=== PATIENT | female | born 2000 | race Caucasian/White ===

== ENCOUNTER 2022-05-18 19:33 | Emergency (ER) | payer MEDICAID, SELFPAY ==
--- NOTE | ~2022-05-18 | XR_ITS ---
EXAMINATION: XR chest 1V portable DATE: 05/19/2022 01:11 INDICATION: Chest pain. TECHNIQUE: A single frontal view of the chest was obtained. COMPARISON: None. FINDINGS: The chest demonstrates clear lungs without pneumonia, pleural effusion, or pneumothorax. Th e heart size is normal. IMPRESSION: 1. No acute cardiopulmonary disease. Reviewed, dictated and finalized at location A. ING ROOM MAINTENANCE MECHANIC
--- NOTE | ~2022-05-18 | US_ITS ---
EXAMINATION: US OB <=14 wk fetus w TV DATE: 05/19/2022 00:44 INDICATION: Vaginal bleeding. Tachycardia. . TECHNIQUE: Real-time transabdominal and transvaginal pelvic ultrasound was performed. COMPARISON: None. FINDINGS: TRANSABDOMINAL ULTRASOUND: The uterus measures 8.6 x 5.2 x 4.4 cm. TRANSVAGINAL ULTRASOUND: There is an intrauterine gestational sac with mean diameter of 8 mm, which c orrelates with an estimated gestational age of 5 weeks and 4 days +/- 4 days. A yolk sac is identifie d. There is no visible pole. The right ovary measures 2.5 x 2.0 x 2.5 cm. The left ovary measur es 2.8 x 4.1 x 2.8 cm. There is trace free fluid in the pelvis. IMPRESSION: 1. Single intrauterine gestation with estimated date of delivery of 01/15/2023. Reviewed, dictated and finalized at location A. BAG BUILDER
[2022-05-18 19:37] VITALS: BP 130/79; PULSE 136; RESP 18; TEMP 36.2; O2SAT 100
--- NOTE | 2022-05-18 21:10 | ECG_ITS ---
Measurements Intervals [place] Rate: 127 P: 69 [place]: 111 QRS: 75 QRSD: 89 T: 34 QT: 284 QTc: 413 Interpretive Statements SINUS TACHYCARDIA WITH SHORT [place] INTERVAL INCOMPLETE RIGHT BUNDLE BRANCH BLOCK BORDERLINE ST-T WAVE ABNORMALITY- ANT/INF LEADS BASELINE ARTIFACT- I, II, AVR, AVL ABNORMAL ECG NO PREVIOUS ECG AVAILABLE FOR COMPARISON Electronically Signed On 05-18-2022 22:59:24 DIRECTOR CLINICAL DATA by Terrell Mathew D.O.
[2022-05-18 21:38] LABS: Appearance Urine Clear (Clear); Basophils Percent Auto 0.3 % (0.2-1.2); Bilirubin Urine Negative (Negative); Blood Urine Trace-intact (Negative); Color Urine Yellow (Yellow); Eosinophils Percent Auto 0.6 % (0-4.4); Glucose Urine UA Trace mg/dL (Negative); Hematocrit 36.8 % (37.0-47.0); Hemoglobin 11.9 g/dL (12.0-15.0); Immature Granulocyte Absolute 0.02 K/mm3 (0.00-0.031); Immature Granulocyte Percent A 0.3 % (0-0.5); Ketones Urine Negative (Negative); Leukocyte Esterase Ur Negative LEU/UL (Negative); Lymphocytes Absolute Auto 1.66 K/mm3 (0.9-3.2); Mean Corpuscular HGB Conc 32.3 g/dl (32-36); Mean Corpuscular Hemoglobin 26.6 pg (26-34); Mean Corpuscular Volume 82.1 fl (80-100); Mean Platelet Volume 10.1 fl (7.4-10.4); Monocytes Absolute Auto 0.5 K/mm3 (0.1-0.6); Monocytes Percent Auto 6.8 % (2.6-8.5); Neutrophils Absolute Auto 4.7 K/mm3 (1.3-6.7); Nitrate Urine Negative (Negative); Platelet Count Result 317 k/mm3 (150-375); Protein Urine Negative (Negative); Red Blood Count 4.48 M/mm3 (4.2-5.4); Red Cell Distribution Width 14.1 % (11.5-14.5); Urobilinogen Urine 0.2 mg/dL (<2.0); White Blood Count 6.9 K/mm3 (4.5-10.0)
[2022-05-18 21:47] LABS: RBC Urine 0-2 /hpf (0-2); Squamous Epithelial Cell Urine Rare /hpf (Few); WBC Urine 0-3 /hpf
[2022-05-18 21:48] LABS: Alanine Aminotransferase 16 U/L (6-35); Albumin Level 4.7 g/dL (3.5-5.1); Alkaline Phosphatase 55 U/L (38-126); Anion Gap 11 mmol/L (8-16); Aspartate Amino Transferase 22 U/L (14-36); Bilirubin,Total 0.2 mg/dL (0.2-1.3); Blood Urea Nitrogen 9 mg/dL (7-17); Calcium 8.9 mg/dL (8.4-10.2); Carbon Dioxide 21 mmol/L (22-30); Chloride 106 mmol/L (98-107); Estimated CRCL calculation 98 ml/min; Estimated Glomerular Filt Rate > 60; Glucose 115 mg/dL (65-110); Lipase 81 U/L (23-300); Potassium 3.8 mmol/L (3.4-5.0); Sodium 138 mmol/L (137-145)
[2022-05-18 21:49] LABS: Add Urine Microscopic? YES
[2022-05-18 21:59] LABS: Troponin I < 0.012 ng/mL (0.000-0.034)
--- NOTE | 2022-05-18 23:01 | ED.BACK ---
HPI - Back Pain/Injury General Chief Complaint: Back Pain/Injury Stated Complaint: left upper back pain with SOB Time Seen by Provider: 05/18/22 23:01 Source: patient Mode of arrival: ambulatory Limitations: no limitations History of Present Illness HPI Narrative: Patient is a 22-year-old female currently 6 weeks dated by last menstrual period, presenting to the emergency department for evaluation of left upper chest and back pain as well as shortness of breath. Patient reports pain began suddenly this evening approximately 5 hours ago while she was sitting. Patient denies any significant exertional activity, fall, trauma. Patient reports shortness of breath that is worsened with exertion. She reports pleuritic pain and pressure. She denies palpitations. Patient denies leg swelling or calf pain. She does not smoke. Denies history of coagulopathy. Patient also reports she had some vaginal bleeding, light spotting, 2 days ago. No current pelvic pain, abdominal pain or distention. No current vaginal bleeding or loss of fluids. She denies dysuria or hematuria. Patient denies fever, chills, congestion. Patient does not currently have an GRAPPLE OPERATOR for this . Patient does report recent long car travel greater than 5 hours over the . Related Data Allergies Allergy/AdvReac Type Severity Reaction Status Date / Time No Known Allergies Allergy Verified 05/18/22 19:41 Review of Systems Review of Systems: CONSTITUTIONAL: Denies fever, chills, or sweats. EYES: Denies visual changes, redness, or discharge. ENT: Denies rhinorrhea, congestion, sore throat, or otalgia. CARDIOVASCULAR: Reports chest pain, denies palpitations or edema RESPIRATORY: Denies cough or dyspnea. GASTROINTESTINAL: Denies abdominal pain, nausea, vomiting, or diarrhea. GENITOURINARY: Denies dysuria or hematuria. Reports vaginal spotting 2 days ago, now resolved. SKIN: Denies rash or itching. MUSCULOSKELETAL: Reports left upper back pain, denies joint pain or myalgias. NEUROLOGIC: Denies headache, numbness, or weakness. [facility] Past Medical History Medical History (Updated 05/19/22 @ 01:47 by Katherine Gale MD) No pertinent past medical history Surgical History Surgical History (Updated 05/18/22 @ 23:32 by Katherine Gale MD) H/O wisdom tooth extraction Social History Social History (Updated 05/18/22 @ 23:32 by Katherine Gale MD) Smoking status: Never smoker Alcohol intake: never Substance use: never Gender identity (if verbalized by the patient): Female Exam Narrative: GENERAL: Awake, alert, conversant HEAD: Normocephalic, atraumatic. EYES: PERRLA and EOMI. ENT: Nares clear, no rhinorrhea or epistaxis. Mucous membranes moist. NECK: Supple. CHEST: No respiratory distress, breathing even and non labored, lungs are clear to auscultation bilaterally without rhonchi, crackles, rales HEART: Tachycardic rate, sinus rhythm ABDOMEN:Non distended, non tender EXTREMITIES: Normal range of motion. No edema. No calf tenderness, erythema, ecchymosis bilaterally. Compartments are soft. SKIN: Warm, dry, no rash. NEURO:No focal deficits. Alert and oriented x3 Course Vital Signs Vital signs: Vital Signs Temperature 36.2 C L 05/18/22 19:37 Pulse Rate 136 H 05/18/22 19:37 Respiratory Rate 18 05/18/22 19:37 Blood Pressure 130/79 05/18/22 19:37 Pulse Oximetry 100 05/18/22 19:37 Oxygen Delivery Room Air 05/18/22 19:37 Temperature 36.2 C L 05/18/22 19:37 Pulse Rate 118 H 05/19/22 01:46 Respiratory Rate 14 05/19/22 01:46 Blood Pressure 118/68 05/19/22 01:46 Pulse Oximetry 100 05/19/22 01:46 Oxygen Delivery Room Air 05/18/22 19:37 MDM - Back Pain/Injury MDM Narrative Medical decision making narrative: Patient presenting for evaluation of chest pain, shortness of breath, found to be significantly tachycardic at the time of assessment. Patient is afebrile,
[2022-05-18 23:10] VITALS: BP 131/81; PULSE 138; RESP 18; O2SAT 100
[2022-05-18 23:30] VITALS: BP 124/78; PULSE 122; RESP 20; O2SAT 100
[2022-05-18 23:45] VITALS: BP 139/81; PULSE 122; RESP 14; O2SAT 100
[2022-05-18 23:48] LABS: Lipase 85 U/L (23-300)
[2022-05-18] MEDS: SODIUM CHLORIDE 0.9% IV 1,000 ML 999 ML IV CONT (23:48)
[2022-05-18 23:49] LABS: Lactic Acid Reflex 0.8 mmol/L (0.7-2.0)
[2022-05-18 23:58] LABS: NT Pro B Type Natriuretic Pept 33 pg/mL (5-100)
[2022-05-19] VITALS: BP 122/69; PULSE 115; RESP 15; O2SAT 100
[2022-05-19 01:46] VITALS: BP 118/68; PULSE 118; RESP 14; O2SAT 100
[2022-05-19 02:23] LABS: Influenza A QL RT-PCR Negative (Negative); Influenza B QL RT-PCR Negative (Negative); RSV RNA, RT-PCR Negative (Negative); SARS-CoV-2 RNA PCR Negative
[2022-05-19 02:31] VITALS: BP 120/60; PULSE 106; RESP 16; O2SAT 100
[2022-05-19 05:41] LABS: Free T4 Free Thyroxine Reflex 1.63 ng/dL (0.78-2.19)
[2022-05-19 06:22] LABS: Total Triiodothyronine (T3) 1.79 NG/ML (0.97-1.69)
== END 2022-05-19 02:35 | disposition home or self-care (01) ==
PROVIDERS: Emergency Provider Emergency Medicine
DX: O99.891 Other specified diseases and conditions complicating pregnancy (principal); R00.0 Tachycardia, unspecified; R06.00 Dyspnea, unspecified; Z20.822 Contact with and (suspected) exposure to COVID-19; Z3A.01 Less than 8 weeks gestation of pregnancy; I45.10 Unspecified right bundle-branch block; R94.31 Abnormal electrocardiogram [ECG] [EKG]
CPT/HCPCS: 36415; 71045; 76801; 76817; 80053; 81001; 83605; 83690; 83880; 84439; 84443; 84480; 84484; 84702; 85025; 85380; 85461; 86850; 86900; 86901; 87637; 93005; 96360; 99284; J7030

== ENCOUNTER 2022-05-25 10:14 | Emergency (ER) | payer MEDICAID, SELFPAY ==
--- NOTE | ~2022-05-25 | US_ITS ---
EXAMINATION: US OB <=14 wk fetus w TV INDICATION: 7 weeks, vaginal bleeding. TECHNIQUE: Sonography of the pelvis was performed by transabdominal and transvaginal techniques. COMPARISON: . RESULT: Uterus: Orientation: Anteverted. 7.6 x 3.3 x 5.7 cm. Myometrium: homogeneous echogenicity. Gestation: - Intrauterine gestational sac: Single present. - Yolk sac: Present, not directly measured. - Embryo: Single present. - [place] rump length: 0.33 cm, corresponding gestational age 6 weeks, 0 days. -Gestational heart rate: present 127 bpm. -Subgestational hematoma: Absent . Right ovary: 3.6 x 1.3 x 1.6 cm. Normal sonographic appearance with physiologic follicles. . . Left ovary: 3 x 2.5 x 2.6 cm. Normal sonographic appearance with physiologic follicles. . 1.9 cm c orpus luteal cyst. Pelvis free fluid: Small free fluid is likely physiologic. IMPRESSION: Single, live intrauterine gestation. Estimated Gestational Age: 6 weeks, 0 days by crown rump length. MARK by ultrasound 01/18/2023. Reviewed, dictated and finalized at location K. E SALES ASSOCIATE IMPRESSION: Single, live intrauterine gestation. Estimated Gestational Age: 6 weeks, 0 days by crown rump length. MARK by ultras ound 01/18/2023.
[2022-05-25 10:17] VITALS: BP 114/63; PULSE 105; RESP 18; TEMP 36.5; O2SAT 100
[2022-05-25 10:33] LABS: Eosinophils Absolute Auto 0.1 K/mm3 (0-0.3); Eosinophils Percent Auto 1.7 % (0-4.4); Hematocrit 36.5 % (37.0-47.0); Hemoglobin 11.8 g/dL (12.0-15.0); Immature Granulocyte Absolute 0.01 K/mm3 (0.00-0.031); Immature Granulocyte Percent A 0.2 % (0-0.5); Lymphocytes Absolute Auto 1.24 K/mm3 (0.9-3.2); Mean Corpuscular HGB Conc 32.3 g/dl (32-36); Mean Corpuscular Hemoglobin 26.8 pg (26-34); Mean Corpuscular Volume 82.8 fl (80-100); Mean Platelet Volume 10.1 fl (7.4-10.4); Monocytes Absolute Auto 0.3 K/mm3 (0.1-0.6); Monocytes Percent Auto 6.5 % (2.6-8.5); Neutrophils Absolute Auto 2.5 K/mm3 (1.3-6.7); Neutrophils Percent Auto 60.6 % (45.5-73.1); Platelet Count Result 249 k/mm3 (150-375); Red Blood Count 4.41 M/mm3 (4.2-5.4); Red Cell Distribution Width 14.2 % (11.5-14.5); White Blood Count 4.1 K/mm3 (4.5-10.0)
[2022-05-25 11:44] VITALS: BP 118/71; PULSE 98; RESP 18; O2SAT 100
--- NOTE | 2022-05-25 12:19 | ED.PREGNANCY ---
HPI - General Chief complaint: Vaginal Bleeding <JERI Hudson Last Filed: 05/25/22 15:05> Stated complaint: vag bld/ <JERI Hudson Last Filed: 05/25/22 15:05> Time Seen by Provider: 05/25/22 11:43 <JERI Hudson Last Filed: 05/25/22 15:05> Source: patient <JERI Hudson Last Filed: 05/25/22 15:05> Mode of arrival: ambulatory <JERI Hudson Filed: 05/25/22 15:05> Limitations: no limitations <JERI Hudson Filed: 05/25/22 15:05> History of Present Illness HPI Narrative: Patient is a 22 y/o female who presents to the ED with report of vaginal bleeding. Patient reports she is approximately 7 weeks gestation by LNMP. She is currently trying to get new insurance and has not seen an EXECUTIVE DIRECTOR OF NURSING yet. She had an US performed here on 05/19 which showed an intrauterine gestation, but no pole or yolk sac yet, 5 weeks gestation. Yesterday into today, patient developed slight vaginal spotting. She states the spotting seemed to become a little bit heavier and more bright red in color today, which prompted her presentation. She denies any significant abdominal pain, nausea, vomiting, fevers, urinary symptoms. <JERI Hudson Last Filed: 05/25/22 15:05> Related Data Allergies/Adverse reactions: Allergies Allergy/AdvReac Type Severity Reaction Status Date / Time No Known Allergies Allergy Verified 05/25/22 11:43 <JERI Hudson Last Filed: 05/25/22 15:05> Review of Systems Review of Systems: CONSTITUTIONAL: Denies fever, chills, or sweats. CARDIOVASCULAR: Denies chest pain. RESPIRATORY: Denies dyspnea. GASTROINTESTINAL: Denies abdominal pain, nausea, vomiting. GENITOURINARY: Reports vaginal bleeding. Denies dysuria or hematuria. <JERI Hudson Last Filed: 05/25/22 15:05> CONSTITUTIONAL: Denies night sweats. EYES: No eye pain ENT: Denies rhinorrhea CARDIOVASCULAR: Denies palpitations RESPIRATORY: Denies hemoptysis GASTROINTESTINAL: Denies hematemesis GENITOURINARY: Denies hematuria. SKIN: Denies rash MUSCULOSKELETAL: Denies myalgia. NEUROLOGIC: Denies weakness. PSYCHIATRIC: Denies delusions <Bro Mcbride MD - Last Filed: 05/25/22 15:09> All systems reviewed & are unremarkable except as noted in HPI and below <Alisa Anthony PA-C - Last Filed: 05/25/22 15:05> [facility] Past Medical History Medical History: Medical History No pertinent past medical history <Alisa Anthony PA-C - Last Filed: 05/25/22 15:05> Surgical History Surgical History: Surgical History H/O wisdom tooth extraction <Alisa Anthony PA-C - Last Filed: 05/25/22 15:05> Social History Social History: Social History Smoking status: Never smoker Alcohol intake: never Substance use: never Gender identity (if verbalized by the patient): Female <Alisa Anthony PA-C - Last Filed: 05/25/22 15:05> Exam Narrative: GENERAL: Well appearing, thin, non-toxic, in no acute distress. HEAD: Normocephalic, atraumatic. NECK: Supple. No adenopathy, no masses. RESPIRATORY: Airway patent, respirations nonlabored. Clear to auscultation bilaterally, no rales, rhonchi, wheezing. CARDIOVASCULAR: Regular rate and rhythm without murmurs, rubs, or gallops. Radial pulses 2+ and equal bilaterally. ABDOMINAL: Soft, no tenderness to palpation, nondistended, no hepatosplenomegaly. Normoactive BS. PELVIC: Normal external genitalia. Small amount of dark red blood/discharge. No signs of hemorrhage or pooling of blood. No bright red bleeding. Cervix appears closed. MUSCULOSKELETAL: Moves all extremities. Strength/ROM intact without gross deformitie
--- NOTE | 2022-05-25 12:39 | PC.NURSE ---
Pt to US
[2022-05-25 12:53] LABS: Appearance Urine Clear (Clear); Bilirubin Urine Negative (Negative); Blood Urine 3+ (Negative); Color Urine Yellow (Yellow); Glucose Urine UA Negative (Negative); Ketones Urine 3+ mg/dL (Negative); Leukocyte Esterase Ur Negative LEU/UL (Negative); Nitrate Urine Negative (Negative); Protein Urine Negative (Negative); Specific Grav Ur >= 1.030 (1.001-1.035); Urobilinogen Urine 0.2 mg/dL (<2.0); pH Urine 5.5 (5.0-9.0)
[2022-05-25 12:58] LABS: Bacteria Urine Trace /hpf; Mucus Urine Few /lpf; RBC Urine 21-50 /hpf (0-2); Squamous Epithelial Cell Urine Few /hpf (Few); WBC Urine 0-3 /hpf
[2022-05-25 13:00] LABS: Add Urine Microscopic? YES
[2022-05-25] MEDS: SODIUM CHLORIDE 0.9% IV 1,000 ML 999 ML IV CONT (13:31)
== END 2022-05-25 15:19 | disposition home or self-care (01) ==
PROVIDERS: Physician Assistant; Emergency Provider Emergency Medicine
DX: O20.0 Threatened abortion (principal); Z3A.01 Less than 8 weeks gestation of pregnancy
CPT/HCPCS: 36415; 76801; 76817; 81001; 84702; 85025; 85461; 86850; 86900; 86901; 96360; 99284; J7030

== ENCOUNTER 2022-10-05 14:57 | Outpatient (CLI) | payer OTHER, SELFPAY ==
[2022-10-05 15:30] VITALS: BP 119/74; PULSE 131
[2022-10-05 15:51] VITALS: BP 119/74
--- NOTE | 2022-10-05 15:54 | PC.NURSE ---
1520- Dr. Tayler Epstein notified of patient's arrival. Send [facility] labs and update with results.
[2022-10-05 16:00] VITALS: BP 117/81; PULSE 116
[2022-10-05 16:05] LABS: Basophils Percent Auto 0.2 % (0.2-1.2); Eosinophils Percent Auto 0.2 % (0-4.4); Hematocrit 30.1 % (37.0-47.0); Hemoglobin 9.2 g/dL (12.0-15.0); Immature Granulocyte Absolute 0.03 K/mm3 (0.00-0.031); Immature Granulocyte Percent A 0.5 % (0-0.5); Lymphocytes Absolute Auto 1.02 K/mm3 (0.9-3.2); Lymphocytes Percent Auto 16.2 % (18.3-44.2); Mean Corpuscular HGB Conc 30.6 g/dl (32-36); Mean Corpuscular Hemoglobin 22.7 pg (26-34); Mean Corpuscular Volume 74.1 fl (80-100); Mean Platelet Volume 10.5 fl (7.4-10.4); Monocytes Absolute Auto 0.4 K/mm3 (0.1-0.6); Monocytes Percent Auto 5.6 % (2.6-8.5); Neutrophils Absolute Auto 4.9 K/mm3 (1.3-6.7); Neutrophils Percent Auto 77.3 % (45.5-73.1); Platelet Count Result 261 k/mm3 (150-375); Red Blood Count 4.06 M/mm3 (4.2-5.4); Red Cell Distribution Width 14.6 % (11.5-14.5); White Blood Count 6.3 K/mm3 (4.5-10.0)
[2022-10-05 16:09] LABS: Alanine Aminotransferase 19 U/L (6-35); Albumin Level 3.8 g/dL (3.5-5.1); Alkaline Phosphatase 63 U/L (38-126); Anion Gap 4 mmol/L (8-16); Aspartate Amino Transferase 21 U/L (14-36); Bilirubin,Total 0.5 mg/dL (0.2-1.3); Blood Urea Nitrogen 7 mg/dL (7-17); Calcium 8.6 mg/dL (8.4-10.2); Carbon Dioxide 26 mmol/L (22-30); Chloride 104 mmol/L (98-107); Estimated Glomerular Filt Rate > 60; Glucose 81 mg/dL (65-110); Potassium 3.9 mmol/L (3.4-5.0); Sodium 134 mmol/L (137-145); Uric Acid 1.6 mg/dL (2.5-7.5)
[2022-10-05 16:20] LABS: Anisocytosis 1+ (NORMAL); Microcytosis 1+ (NORMAL); Ovalocytes 1+ (NORMAL); Platelet Estimate Adequate (Adequate); Schistocytes None Seen (NORMAL)
[2022-10-05 16:26] LABS: Appearance Urine Clear (Clear); Bilirubin Urine Negative (Negative); Blood Urine Negative (Negative); Color Urine Yellow (Yellow); Glucose Urine UA 1+ mg/dL (Negative); Ketones Urine Negative (Negative); Leukocyte Esterase Ur Negative LEU/UL (NEGATIVE); Nitrate Urine Negative (Negative); Protein Urine Negative (Negative); Specific Grav Ur 1.016 (1.001-1.035); Urobilinogen Urine 0.2 mg/dL (<2.0); pH Urine 6.5 (5.0-9.0)
[2022-10-05 16:42] LABS: Add Urine Microscopic? NO
[2022-10-05 16:49] LABS: Total Protein Urine Random < 5 mg/dL; Ur Ttl Prot Creatinine Ratio < 0.06 mg/mg (0-0.20)
--- NOTE | 2022-10-05 16:54 | PC.NURSE ---
Dr. Tayler Epstein notified of patient's vital signs and lab results, okay to discharge. Patient given instructions on when to return to L&D.
== END 2022-10-05 16:56 | disposition home or self-care (01) ==
LOC: ANHOBOP 15:06 → ANHOBPP 15:09
PROVIDERS: Visit Provider Obstetrics & Gynecology
DX: O13.9 Gestational [pregnancy-induced] hypertension without significant proteinuria, unspecified trimester (principal); Z3A.00 Weeks of gestation of pregnancy not specified
CPT/HCPCS: 36415; 59025; 80053; 81003; 82570; 84156; 84550; 85025; 87086; 99199

== ENCOUNTER 2023-01-11 13:44 | Inpatient (IN) | payer OTHER, SELFPAY ==
[2023-01-11] VITALS (125 sets, daily range): BP systolic 106–153; BP diastolic 53–106; PULSE 25–212; RESP 18; TEMP 36.9–37.2; O2SAT 84–100; BMI 24.1
--- NOTE | 2023-01-11 13:44 | LDADM ---
This patient, Aleyda Mcadams, was admitted to Labor/Delivery/Recovery 101 on 01/11/23 at 13:44. Plans for labor, pain management and were discussed with patient. Patient/family oriented to hospital policies and general routines including ID bracelet, bed and alarms, visiting hours, pain management, procedures, bathroom and other care routines, personal items, smoking policy, room service/diet and guest tray routines, infant security routines, and visiting hours. Patient/Family are encouraged to report perceived risks to care and to ask questions if they do not understand what they are told or what they should do. See OBIX for further documentation.
[2023-01-11] MEDS: LACTATED RINGERS 1,000 ML 125 ML IV CONT ×2 (14:26→19:07)
[2023-01-11 14:32] LABS: Basophils Percent Auto 0.2 % (0.2-1.2); Eosinophils Percent Auto 0.1 % (0-4.4); Hematocrit 36.3 % (37.0-47.0); Hemoglobin 10.4 g/dL (12.0-15.0); Immature Granulocyte Absolute 0.03 K/mm3 (0.00-0.031); Immature Granulocyte Percent A 0.4 % (0-0.5); Lymphocytes Absolute Auto 1.02 K/mm3 (0.9-3.2); Lymphocytes Percent Auto 12.1 % (18.3-44.2); Mean Corpuscular HGB Conc 28.7 g/dl (32-36); Mean Corpuscular Hemoglobin 21.1 pg (26-34); Mean Corpuscular Volume 73.8 fl (80-100); Mean Platelet Volume 10.5 fl (7.4-10.4); Monocytes Absolute Auto 0.5 K/mm3 (0.1-0.6); Monocytes Percent Auto 5.9 % (2.6-8.5); Neutrophils Absolute Auto 6.9 K/mm3 (1.3-6.7); Neutrophils Percent Auto 81.3 % (45.5-73.1); Platelet Count Result 251 k/mm3 (150-375); Red Blood Count 4.92 M/mm3 (4.2-5.4); Red Cell Distribution Width 22.9 % (11.5-14.5); White Blood Count 8.4 K/mm3 (4.5-10.0)
[2023-01-11 14:39] LABS: Anisocytosis 1+ (NORMAL); Platelet Estimate Adequate (Adequate)
[2023-01-11 14:40] LABS: Hypochromasia 1+ (NORMAL); Ovalocytes 1+ (NORMAL); Schistocytes None Seen (NORMAL)
--- NOTE | 2023-01-11 14:51 | WPDANESEPP ---
Anes - Eval Pre Procedure Procedure: labor epidural Date/Time: 01/11/23 14:51 Preop Diagnosis: labor pain Pre Op Diagnosis: labor Patient Data Age: 22 Gender: F Height: 1.55 m Weight: 58 kg Last Vital Signs Pulse 115 H 01/11/23 14:46 BP 132/84 01/11/23 14:46 Allergies Allergy/AdvReac Type Severity Reaction Status Date / Time No Known Allergies Allergy Verified 12/29/22 13:33 Home Medications Medication Instructions Recorded Confirmed Type vits no.126-ferrous fum 1 tablet PO DAILY 12/29/22 12/29/22 History 28 mg iron-folic acid 800 mcg tablet (Classic ) Laboratory Tests 01/11/23 14:26 WBC 8.4 K/mm3 (4.5-10.0) RBC 4.92 M/mm3 (4.2-5.4) Hgb 10.4 L g/dL (12.0-15.0) Hct 36.3 L % (37.0-47.0) MCV 73.8 L fl (80-100) MCH 21.1 L pg (26-34) MCHC 28.7 L g/dl (32-36) RDW 22.9 H % (11.5-14.5) Plt Count 251 k/mm3 (150-375) MPV 10.5 H fl (7.4-10.4) Immature Gran % (Auto) 0.4 % (0-0.5) Neut % (Auto) 81.3 H % (45.5-73.1) Lymph % (Auto) 12.1 L % (18.3-44.2) [place] % (Auto) 5.9 % (2.6-8.5) Eos % (Auto) 0.1 % (0-4.4) Baso % (Auto) 0.2 % (0.2-1.2) Lymph # (Auto) 1.02 K/mm3 (0.9-3.2) [place] # (Auto) 0.5 K/mm3 (0.1-0.6) Eos # (Auto) 0.0 K/mm3 (0-0.3) Baso # (Auto) 0.0 K/mm3 (0.0-0.1) Abs Immat Gran (auto) 0.03 K/mm3 (0.00-0.031) Absolute Neuts (auto) 6.9 H K/mm3 (1.3-6.7) Absolute Nucleated RBC 0.0 K/mm3 (0.0-0.012) Nucleated RBC % 0.0 % (0.0-0.2) Platelet Estimate Adequate (Adequate) Hypochromasia 1+ (NORMAL) Anisocytosis 1+ (NORMAL) Ovalocytes 1+ (NORMAL) Schistocytes None seen (NORMAL) RPR Pending Blood Type Pending Antibody Screen Pending Patient hx anesthesia problems: none Family hx anesthesia problems: none Results Review: All pre-operative results and documents have been reviewed as part of the pre-operative evaluation. [facility] Past Medical History Medical History No pertinent past medical history Surgical History Surgical History H/O wisdom tooth extraction Family History Family History Other Unknown family medical history Social History Social History Smoking status: Never smoker Alcohol intake: never Substance use: never Gender identity (if verbalized by the patient): Female Spiritual care concerns: No Comments patient was seen for chest pain in April 2022. Nothing was found in ED. No cardiology follow up was necessary. No symptoms today Exam Day of Procedure 01/11/23 14:51 Patient weight: normal Heart: regular rate and rhythm Lungs: clear to auscultation and normal air movement Airway: Mallampati scale Neurological: alert and oriented
--- NOTE | 2023-01-11 16:11 | PM.IMHP ---
H&P: HPI History of Present Illness Date/Time: 01/11/23 16:11 Chief Complaint: Labor at term Narrative: this is a 22-year-old 1 para 0 at 39 and half weeks gestation in active labor. has been uncomplicated and she is negative for group B strep. [facility] Past Medical History Medical History No pertinent past medical history Surgical History Surgical History H/O wisdom tooth extraction Family History Family History Other Unknown family medical history Social History Social History Smoking status: Never smoker Alcohol intake: never Substance use: never Gender identity (if verbalized by the patient): Female Spiritual care concerns: No Meds Home Medications and Allergies Home Medications Medication Instructions Recorded Confirmed Type vits no.126-ferrous fum 1 tablet PO DAILY 12/29/22 12/29/22 History 28 mg iron-folic acid 800 mcg tablet (Classic ) Allergies Allergy/AdvReac Type Severity Reaction Status Date / Time No Known Allergies Allergy Verified 12/29/22 13:33 Vital Signs Vital Signs - 24 hr 01/11/23 14:26 01/11/23 14:31 01/11/23 14:46 Pulse Rate 125 H 116 H 115 H Blood Pressure 142/91 H 135/91 H 132/84 Pulse Oximetry 01/11/23 15:01 01/11/23 15:03 01/11/23 15:03 Pulse Rate 123 H Blood Pressure 140/90 Pulse Oximetry 100 100 01/11/23 15:03 01/11/23 15:04 01/11/23 15:09 Pulse Rate Blood Pressure Pulse Oximetry 95 86 L 100 01/11/23 15:12 01/11/23 15:13 01/11/23 15:14 Pulse Rate 115 H 118 H Blood Pressure 131/84 136/89 Pulse Oximetry 100 01/11/23 15:16 01/11/23 15:19 01/11/23 15:22 Pulse Rate 113 H 117 H Blood Pressure 134/86 129/86 132/88 Pulse Oximetry 100 01/11/23 15:24 01/11/23 15:25 01/11/23 15:28 Pulse Rate 137 H 126 H Blood Pressure 131/88 133/89 Pulse Oximetry 100 01/11/23 15:29 01/11/23 15:31 01/11/23 15:34 Pulse Rate 112 H 112 H Blood Pressure 134/84 136/91 H Pulse Oximetry 100 100 01/11/23 15:37 01/11/23 15:39 01/11/23 15:40 Pulse Rate 136 H 117 H Blood Pressure 126/94 H 137/92 H Pulse Oximetry 100 01/11/23 15:43 01/11/23 15:44 01/11/23 15:46 Pulse Rate 96 99 Blood Pressure 139/90 127/53 L Pulse Oximetry 100 01/11/23 15:49 01/11/23 15:52 01/11/23 15:54 Pulse Rate 130 H 126 H Blood Pressure 137/100 H 130/90 Pulse Oximetry 100 100 01/11/23 15:55 01/11/23 15:58 01/11/23 15:59 Pulse Rate 131 H 115 H Blood Pressure 130/94 H 143/94 H Pulse Oximetry 100 01/11/23 16:01 01/11/23 16:04 01/11/23 16:07 Pulse Rate 133 H 111 H 109 H Blood Pressure 131/94 H 136/83 144/92 H Pulse Oximetry 100 01/11/23 16:09 01/11/23 16:10 Pulse Rate 95 Blood Pressure 149/106 H Pulse Oximetry 100 Exam Const: General: cooperative, healthy appearing, comfortable and average body habitus Orientation/consciousness: oriented to person, oriented to place and oriented to time HENMT: Head: normal to inspection Resp: Effort & Inspection: normal respiratory effort Cardio: Rate: regular rate Rhythm: regular rhythm Heart sounds: S1 normal heart sound present and S2 normal heart sound present GI: Inspection: normal to inspection : External Female Exam: normal external appearance Speculum Exam - Vagina: normal appearance of the vagina ( Clear fluid noted) Speculum Exam - Cervix: normal appearance of the cervix ( cervix 8cm by RN exam. FHT is reassuring epidural was placed) H&P: Results Labs Labs: Short CBC 01/11/23 Range/Units 14:26 WBC 8.4 (4.5-10.0) K/mm3 Hgb 10.4 L (12.0-15.0) g/dL Hct 36.3 L (37.0-47.0) % Plt Count 251 (150-375) k/mm3 Assessment and Plan Assess
--- NOTE | 2023-01-11 16:27 | PM.OBPNLAB ---
Pain Control Date/time seen: 01/11/23 16:27 Pain control: tolerating well and epidural Pelvic Exam Dilation (cm): 8 Effacement (%): 90 station: -1 Amniotic membrane status: Ruptured Comments: AROM clear Contractions Monitor mode: External Contraction frequency: 3 Contraction intensity: Strong/Firm Status status: Category l
[2023-01-11] MEDS: OXYTOCIN 30 UNITS/NS 500 ML 30 UNITS/500 ML BAG IV CONT (17:30)
--- NOTE | 2023-01-11 19:55 | PM.OBPRVD ---
OB - Delivery Note Procedure Delivery date: 01/11/23 Induction method: None Delivery augmentation: Pitocin Delivery monitor: External FHT Route of delivery: Episiotomy description: None Laceration Description: None Specimen: No Quantitative Blood Loss (ml): 160 Anesthesia type: Epidural Disposition: Floor [place] Baby Date of : 01/11/23 Time of : 19:43 Weeks of gestation at delivery: 39 gender: Male Weight (pounds): 7 Weight (ounces): 10 presentation: vertex position: Right Occiput Anterior Placenta delivery description: Spontaneous Cord Vessel Description: 3 Vessels and Delayed Cord Clamping score one minute: 9 score five minutes: 9
[2023-01-11] MEDS: OXYTOCIN 30 UNITS/NS 500 ML 30 UNITS/500 ML BAG 125 UNITS IV CONT (20:20)
--- NOTE | 2023-01-11 23:05 | PC.NURSE ---
Patient transferred to post room #287 per wheelchair from labor and delivery. Support person present. Oriented to unit, room, information board, rooming in, admission packet and security measures. Patient verbalizes understanding.
[2023-01-12 04:50] VITALS: BP 113/67; PULSE 93; RESP 18; TEMP 36.8
[2023-01-12 05:31] LABS: Hematocrit 29.9 % (37.0-47.0); Hemoglobin 8.6 g/dL (12.0-15.0)
--- NOTE | 2023-01-12 07:17 | PM.DS ---
DS: Admitting Diagnosis Discharge Date 01/12/2023 Admitting Diagnosis Term DS: Discharge Diagnosis Discharge Diagnosis (1) Term : Code(s): Z34.90 - Encounter for supervision of normal , unspecified, unspecified trimester Status: Acute DS: Summary Hospital Course Reason for hospitalization: patient was admitted in active labor at 39 weeks gestation Hospital Course: patient underwent spontaneous vaginal delivery which was unremarkable. Her hospital course was unremarkable. She remained afebrile. She was , eating regular diet, ambulating, voiding without difficulty, in general without complaints. Time Spent with Patient Time attestation: Total time spent providing and/or coordinating discharge services: Exam Const: General: cooperative, healthy appearing and comfortable Nutritional Appearance: average body habitus Orientation/consciousness: oriented to person, oriented to place and oriented to time HENMT: Head: normal to inspection Resp: Effort & Inspection: normal respiratory effort Cardio: Rate: regular rate Rhythm: regular rhythm Heart sounds: S1 normal heart sound present and S2 normal heart sound present GI: Inspection: normal to inspection ( Fundus firm below the umbilicus) Auscultation: normal bowel sounds : External Female Exam: normal external appearance DS: Data Data Completed and Pending Labs on day of discharge: Labs from last 24 hours 01/12/23 01/11/23 04:57 14:26 WBC 8.4 RBC 4.92 Hgb 8.6 L 10.4 L Hct 29.9 L 36.3 L MCV 73.8 L MCH 21.1 L MCHC 28.7 L RDW 22.9 H Plt Count 251 MPV 10.5 H Immature Gran % (Auto) 0.4 Neut % (Auto) 81.3 H Lymph % (Auto) 12.1 L [place] % (Auto) 5.9 Eos % (Auto) 0.1 Baso % (Auto) 0.2 Lymph # (Auto) 1.02 [place] # (Auto) 0.5 Eos # (Auto) 0.0 Baso # (Auto) 0.0 Abs Immat Gran (auto) 0.03 Absolute Neuts (auto) 6.9 H Absolute Nucleated RBC 0.0 Nucleated RBC % 0.0 Platelet Estimate Adequate Hypochromasia 1+ Anisocytosis 1+ Ovalocytes 1+ Schistocytes None seen RPR Pending Blood Type O Positive Antibody Screen Negative Discharge Plan Discharge Attending physician on discharge: Khai Cleveland Discharging Clinician: Khia Cleveland Patient Disposition: Home, Self-Care Activity: may shower and pelvic rest Diet: heart healthy Wound Care Instructions: follow printed instructions Discharge Instructions: Education: Mom and Baby Guide Given to: Mother Follow-Up: Call your delivering provider's office for an appointment to be seen in: 6 Weeks Mom and baby should come to the [facility] for the follow-up appointment. Appointment Date/Time: January 14, 2023 at 11:00 am What to expect at your follow-up visit: Physical Assessment Call [phone] if you are unable to keep your appointment time. BREAST CARE: * Wear a snug supportive bra. * For engorgement discomfort: Breast Feeding: * Apply warm moist washcloths * Express milk as needed to relieve engorgement * Wear loose clothing * For sore nipples: * Identify correct latch-on * Apply warm moist washcloths before and after nursing * Air dry nipples after nursing * May apply Lansinoh cream to nipples EPISIOTOMY/PERINEAL CARE: * Until bleeding stops, use your baldo bottle after urinating * Change your pad frequently throughout the day * You may take sitz baths several times a day (fill your bathtub with warm water and soak for 20 minutes.) Do NOT bathe in the water * No tub baths until seen by your physician - You may shower ACTIVITY: * Rest as much as possible. * Do not exercise or lift anything heavier than your baby (such as laundry or other children.) * Avoid stairs or driving as much as possible. * Do not put anything into the vagina. No douching, tampons, or sexua
--- NOTE | 2023-01-12 07:39 | PM.OBPNVD ---
OB - PN: Subj Subjective Date/time seen: 01/12/23 07:39 Patient comments: no complaints and pain well controlled baby status: doing well OB - PN: Obj Data Labs 01/12/23 04:57 Labs: Laboratory Results - last 24 hr 01/11/23 01/12/23 14:26 04:57 WBC 8.4 RBC 4.92 Hgb 10.4 L 8.6 L Hct 36.3 L 29.9 L MCV 73.8 L MCH 21.1 L MCHC 28.7 L RDW 22.9 H Plt Count 251 MPV 10.5 H Immature Gran % (Auto) 0.4 Neut % (Auto) 81.3 H Lymph % (Auto) 12.1 L [place] % (Auto) 5.9 Eos % (Auto) 0.1 Baso % (Auto) 0.2 Lymph # (Auto) 1.02 [place] # (Auto) 0.5 Eos # (Auto) 0.0 Baso # (Auto) 0.0 Abs Immat Gran (auto) 0.03 Absolute Neuts (auto) 6.9 H Absolute Nucleated RBC 0.0 Nucleated RBC % 0.0 Platelet Estimate Adequate Hypochromasia 1+ Anisocytosis 1+ Ovalocytes 1+ Schistocytes None seen Blood Type O Positive Antibody Screen Negative OB - PN A/P Plan day: 1 Plan: routine care Time Spent With Patient Time: Total time spent is greater than 50% in coordination of care (as documented) at patient's floor/unit and/or counseling patient: Time with patient: less than 15 minutes Exam Const: General: cooperative, healthy appearing and comfortable Nutritional Appearance: average body habitus Orientation/consciousness: oriented to person, oriented to place and oriented to time HENMT: Head: normal to inspection Resp: Effort & Inspection: normal respiratory effort Cardio: Rate: regular rate Rhythm: regular rhythm Heart sounds: S1 normal heart sound present and S2 normal heart sound present GI: Inspection: normal to inspection ( fundus firm below umbilicus)
--- NOTE | 2023-01-12 07:53 | WPDANLDPN2 ---
Anes-Prog Note L&D Date/Time: 01/12/23 07:53 Comfortable throughout: labor and delivery Neuraxial method: epidural Epidural/Spinal procedure site: clean & non-tender Neuro status: Neuro function grossly intact. Cardiovascular status: normal Respiratory status: normal Airway patency: baseline Mental status: baseline Post-Op hydration status: normal Vital Signs: Last Vital Signs Temp 98.2 F 01/12/23 04:50 Pulse 93 01/12/23 04:50 Resp 18 01/12/23 04:50 BP 113/67 01/12/23 04:50 Pulse Ox 100 01/11/23 21:13 O2 Del Method Room Air 01/11/23 23:35 Pain score (VAS): 0/10 I/O: Intake & Output 01/11/23 01/11/23 01/12/23 15:59 23:59 07:59 Intake Total 1000 500 Output Total 260 Balance 740 500 Post-procedural complaints: none Patient feedback: Patient satisfied with anesthetic care.
[2023-01-12 08:00] VITALS: BP 112/76; PULSE 102; RESP 18; TEMP 37.7; O2SAT 100
[2023-01-12] MEDS: MULTIVIT/MIN/PREN/FOL AC/IRON TABLET 1 TAB PO (08:57)
[2023-01-12] MEDS: POLYSACCHARIDE IRON COMPLEX 150 MG CAPSULE PO (08:57)
[2023-01-12] MEDS: DOCUSATE SODIUM 100 MG CAPSULE PO (08:58)
[2023-01-12 12:20] VITALS: BP 113/78; PULSE 117; RESP 18; TEMP 37.1; O2SAT 100
[2023-01-12 14:48] LABS: Rapid Plasma Reagin Non-Reactive (NonReactive)
--- NOTE | 2023-01-12 14:51 | PC.NURSE ---
[id number] Introductions were made, then consulted with patient to assess needs related to . Mother led the conversation with her?plans to feed?her and the?experience so far. Encouraged mother with positioning and breast support with the u-hold when latching her in cross cradle or football. Maternal mother states infant doesn't want to open up wide and they shove the nipple into the infants mouth, then they express colostrum into the infants mouth until he gets it . Reviewed with mother signs of an effective latch versus a painful ineffective latch. Caution was given with shoving the breast into the infants mouth as it could cause bruising and pain. Resources provided for inpatient and outpatient services. Mother voiced understanding of information and was encouraged to call for assistance with latching infant. Reported to the primary RN.
--- NOTE | 2023-01-12 19:45 | PC.NURSE ---
Patient instructed to view the discharge video Mother & Baby Care, The First Two Weeks online. Patient was given the opportunity and encouraged to ask questions. Patient verbalized understanding of information shared and has been given the mother/baby guide for home reference.
[2023-01-14 11:34] VITALS: BP 120/80; PULSE 140; RESP 36; TEMP 37.3; O2SAT 100
== END 2023-01-12 21:05 | disposition home or self-care (01) | DRG 560 ==
LOC: ANHLDR 14:12 → ANHOB2 23:42
PROVIDERS: Admitting Provider Obstetrics & Gynecology; PCP Pediatrics; Visit Provider Obstetrics & Gynecology
DX: O80 Encounter for full-term uncomplicated delivery (principal); Z37.0 Single live birth; Z3A.39 39 weeks gestation of pregnancy
CPT/HCPCS: 36415; 85014; 85018; 85025; 86592; 86850; 86900; 86901; A9270; J2590; J2795; J7120

== ENCOUNTER 2024-12-14 06:36 | Inpatient (IN) | payer OTHER, SELFPAY ==
[2024-12-14] VITALS (45 sets, daily range): BP systolic 76–137; BP diastolic 32–100; PULSE 64–146; RESP 16–20; TEMP 36.2–37.5; O2SAT 97–100; BMI 23.8
--- NOTE | 2024-12-14 06:59 | PM.IMHP ---
H&P: HPI History of Present Illness Date/Time: 12/14/24 06:59 Chief Complaint: Induction of labor at term Narrative: 24-year-old 2 para 1 whose last menstrual period is unknown, EDC is 12/21/2024, confirmed by 7 week ultrasound presents at 39 weeks gestation for induction of labor she has advanced cervical dilatation with negative group B strep she has had 1 previous vaginal delivery which was uncomplicated Review of Systems Review of Systems: CONSTITUTIONAL: Denies night sweats. EYES: No eye pain ENT: Denies rhinorrhea CARDIOVASCULAR: Denies palpitations RESPIRATORY: Denies hemoptysis GASTROINTESTINAL: Denies hematemesis GENITOURINARY: Denies hematuria. SKIN: Denies rash MUSCULOSKELETAL: Denies myalgia. NEUROLOGIC: Denies weakness. PSYCHIATRIC: Denies delusions All systems reviewed & are unremarkable except as noted in HPI and below PMFSH Past Medical History Medical History No pertinent past medical history Surgical History Surgical History H/O wisdom tooth extraction Family History Family History Other Unknown family medical history Social History Social History Smoking status: Never smoker Alcohol intake: never Substance use: never Lack of Transportation: No Lack of Food: Never True Current Housing: I Have Housing Concerned About Future Housing: No Difficulty Paying Gas/Electric Bills: No Difficulty Paying for Meds: No Currently Unemployed: No Education: High School Diploma/GED Difficulty w/ Childcare or Family Care: No Gender identity (if verbalized by the patient): Female Spiritual care concerns: No Meds Home Medications and Allergies Home Medications ?Medication ?Instructions ?Recorded ?Confirmed ?Type vits no.126-ferrous fum 1 tablet PO DAILY 12/29/22 12/12/24 History 28 mg iron-folic acid 800 mcg tablet (Classic ) Allergies Allergy/AdvReac Type Severity Reaction Status Date / Time No Known Allergies Allergy Verified 12/29/22 13:33 Exam Const: General: cooperative, healthy appearing and comfortable Nutritional Appearance: average body habitus Orientation/consciousness: oriented to person, oriented to place and oriented to time HENMT: Head: normal to inspection Resp: Effort & Inspection: normal respiratory effort Cardio: Rate: regular rate Rhythm: regular rhythm Heart sounds: S1 normal heart sound present and S2 normal heart sound present GI: Inspection: normal to inspection ( fundus firm below umbilicus) Assessment and Plan Assessment and plan (1) Term : Code(s): Z34.90 - Encounter for supervision of normal , unspecified, unspecified trimester Status: Acute Plan Medical induction of labor. Spontaneous vaginal delivery is expected. She is an epidural candidate
--- NOTE | 2024-12-14 07:23 | LDADM ---
This patient, Aleyda Mcadams, was admitted to Labor/Delivery/Recovery 107 on 12/14/24 at 06:36. Plans for labor, pain management and were discussed with patient. Patient/family oriented to hospital policies and general routines including ID bracelet, bed and alarms, visiting hours, pain management, procedures, bathroom and other care routines, personal items, smoking policy, room service/diet and guest tray routines, security routines, and visiting hours. Patient/Family are encouraged to report perceived risks to care and to ask questions if they do not understand what they are told or what they should do. See OBIX for further documentation.
[2024-12-14 07:35] LABS: Basophils Percent Auto 0.3 % (0.2-1.2); Eosinophils Absolute Auto 0.1 K/mm3 (0-0.3); Eosinophils Percent Auto 1.1 % (0-4.4); Hemoglobin 9.5 g/dL (12.0-15.0); Immature Granulocyte Absolute 0.03 K/mm3 (0.00-0.031); Immature Granulocyte Percent A 0.5 % (0-0.5); Immature Platelet Fraction Pct 6.6 % (0.9-11.2); Lymphocytes Absolute Auto 1.74 K/mm3 (0.9-3.2); Lymphocytes Percent Auto 26.3 % (18.3-44.2); Mean Corpuscular HGB Conc 28.8 g/dl (32-36); Mean Corpuscular Hemoglobin 19.8 pg (26-34); Mean Corpuscular Volume 68.9 fl (80-100); Mean Platelet Volume 10.7 fl (7.4-10.4); Monocytes Absolute Auto 0.5 K/mm3 (0.1-0.6); Monocytes Percent Auto 7.4 % (2.6-8.5); Neutrophils Absolute Auto 4.3 K/mm3 (1.3-6.7); Neutrophils Percent Auto 64.4 % (45.5-73.1); Platelet Count Result 247 k/mm3 (150-375); Red Blood Count 4.79 M/mm3 (4.2-5.4); Red Cell Distribution Width 18.7 % (11.5-14.5); White Blood Count 6.6 K/mm3 (4.5-10.0)
[2024-12-14] MEDS: LACTATED RINGERS 1,000 ML 125 ML IV CONT (08:00)
[2024-12-14] MEDS: OXYTOCIN 30 UNITS/NS 500 ML 30 UNITS/500 ML BAG IV CONT (08:00)
[2024-12-14 08:12] LABS: Hypochromasia 1+; Microcytosis 1+ (NORMAL); Platelet Estimate Adequate (Adequate); Schistocytes None Seen
[2024-12-14 09:33] LABS: Syphilis IgG/IgM Antibody Non-Reactive (Nonreactive)
[2024-12-14 09:35] LABS: Hepatitis B Surface Antigen Negative (Negative)
--- NOTE | 2024-12-14 09:35 | PM.OBPNLAB ---
Pain Control Date/time seen: 12/14/24 09:35 Pain control: tolerating well Pelvic Exam Dilation (cm): 7 Effacement (%): 90 station: 0
--- NOTE | 2024-12-14 10:46 | P.PCNOB_ITS ---
OB - Vaginal Delivery Note Procedure Delivery date: 12/14/24 Events: Elective Induction of Labor Induction method: AROM Delivery augmentation: Pitocin Delivery monitor: External FHT and External Uterine Route of delivery: Episiotomy description: None Laceration Description: None Quantitative Blood Loss (ml): 62 Anesthesia type: Epidural Disposition: Floor Complications: No immediate complications Narrative: The patient was admitted for induction of labor early in the a.m.. Artificial rupture membranes performed. She progressed are unremarkable 1st stage of labor to completely dilated when she was complete she pushed delivered the head spontaneously in the FELI position. Nuchal cord checked noted be loose x1 relieved around the occiput anterior posterior shoulder delivered spontaneously. Cord clamped x2 and cut and passed off the table given Apgars of 9 [id number]. Cord blood was drawn. Placenta delivered intact spontaneously. 20units of Pitocin placed in years. No tears or lacerations were noted QBL 62cc. All sponge, needle, instrument counts were correct. Were no immediate complications [place] Baby Date of : 12/14/24 Time of : 10:34 Gestational Age by Date: 39 gender: Male presentation: vertex position: Right Occiput Anterior Placenta delivery description: Spontaneous Cord Vessel Description: 3 Vessels, Nuchal Cord, Loose and Reduced score one minute: 9 score five minutes: 9
--- NOTE | 2024-12-14 10:50 | P.DS_ITS ---
DS: Admitting Diagnosis Discharge Date 12/15/2024 Admitting Diagnosis Term DS: Discharge Diagnosis Discharge Diagnosis (1) Term : Code(s): Z34.90 - Encounter for supervision of normal , unspecified, unspecified trimester Status: Acute DS: Summary Hospital Course Reason for hospitalization: Patient was admitted for induction of labor early a.m. 12/15/2019 she underwent successful spontaneous vaginal delivery with an epidural anesthesia Hospital Course: Patient's hospital course. She remained afebrile. She was up, voiding without difficulty, eating regular diet, ambulating, and generally without complaints. Time Spent with Patient Time attestation: Total time spent providing and/or coordinating discharge services: Exam Const: General: cooperative, healthy appearing and comfortable Nutritional Appearance: average body habitus Orientation/consciousness: oriented to person, oriented to place and oriented to time HENMT: Head: normal to inspection Resp: Effort & Inspection: normal respiratory effort Cardio: Rate: regular rate Rhythm: regular rhythm Heart sounds: S1 normal heart sound present and S2 normal heart sound present GI: Inspection: normal to inspection ( fundus firm below umbilicus) DS: Data Data Completed and Pending Labs on day of discharge: Labs from last 24 hours 12/14/24 06:46 WBC 6.6 RBC 4.79 Hgb 9.5 L Hct 33.0 L MCV 68.9 L MCH 19.8 L MCHC 28.8 L RDW 18.7 H Plt Count 247 MPV 10.7 H Immature Gran % (Auto) 0.5 Neut % (Auto) 64.4 Lymph % (Auto) 26.3 [place] % (Auto) 7.4 Eos % (Auto) 1.1 Baso % (Auto) 0.3 Lymph # (Auto) 1.74 [place] # (Auto) 0.5 Eos # (Auto) 0.1 Baso # (Auto) 0.0 Abs Immat Gran (auto) 0.03 Absolute Neuts (auto) 4.3 Absolute Nucleated RBC 0.000 Band Neutrophils % Not Reportable Nucleated RBC % 0.0 Platelet Estimate Adequate % Immature Plt Fraction 6.6 Hypochromasia 1+ Microcytosis 1+ Schistocytes None seen Syphilis IgG/IgM Ab Non-reactive Hep Bs Antigen Negative Blood Type O Positive Antibody Screen Negative Discharge Plan Discharge Attending physician on discharge: Khai Cleveland Discharging Clinician: Khai Cleveland Patient Disposition: Home Activity: may shower, no straining, may drive after 2 weeks and pelvic rest Diet: heart healthy Wound Care Instructions: follow printed instructions Discharge Instructions: Education: Mom and Baby Guide Given to: Mother Follow-Up: Call your delivering provider's office for an appointment to be seen in: 6 Weeks Mom and baby should come to the [facility] for the follow-up appointment. Appointment Date/Time: December 17, 2024 at 11:00 am What to expect at your follow-up visit: Blood Pressure Check Physical Assessment Call [phone] if you are unable to keep your appointment time. BREAST CARE: * Wear a snug supportive bra. * For engorgement discomfort: Breast Feeding: * Apply warm moist washcloths * Express milk as needed to relieve engorgement * Wear loose clothing Bottle Feeding: * May apply ice packs * For sore nipples: * Identify correct latch-on * Apply warm moist washcloths before and after nursing * Air dry nipples after nursing * May apply Lansinoh cream to nipples PERINEAL CARE: * Until bleeding stops, use your baldo bottle after urinating * Change your pad frequently throughout the day * You may take sitz baths several times a day (fill your bathtub with warm water and soak for 20 minutes.) Do NOT bathe in the water * No tub baths until seen by your physician - You may shower ACTIVITY: * Rest as much as possible. * Do not exercise or lift anything heavier than your baby (such as laundry or other children.) * Avoid stairs or driving as much as possible. * Do not put anything into the vagina. No douching, tampons, or sexual activity until seen by physician. NOTIFY PHYSICIAN IF YOU HAVE ANY QUESTIONS OR IF ANY OF THE FOLLOWING SYMPTOMS OCCUR: * If your episiotomy or incision becomes red, swollen, or more painful than what you have experienced in the hospital. * If your vaginal bleeding becomes foul smelling. * If your vaginal bleeding becomes more heavy than a period or if your bleeding changes from pink to bright red. However, you may pass an occasional walnut- sized clot once or twice for the first week . * If you experience a sharp, shooting pain in you calves. * If you discover a hard, reddened area on your breast or if you experience flu- like symptoms. DIET: * Eat regular, well-balanced meals. * Drink plenty of fluids daily. If , drink to thirst. Patient Instructions: Antibiotic Form Patient Language: Afghan Stand Alone Forms: General Discharge Information Follow-up/Referrals: Khai Cleveland MD [Physician] - Discharge Medications: Continued Classic 28 mg iron- 800 mcg Tablet 1 tablet PO DAILY Date of admission: 12/14/24 06:36 Primary Care Provider: Winsome Patel Admitting Provider: Khai Cleveland Attending physician on admission: Khai Cleveland Condition: Stable
--- NOTE | 2024-12-14 10:52 | WPDANESEPPF ---
Anes - Initial Pre Proc Eval Date/Time: 12/14/24 10:52 Surgeon: Khai Epstein MD Pre Op Diagnosis: IOL Patient Data Age: 24 Gender: F Height: 1.57 m Weight: 59 kg Last Vital Signs Temp 36.2 C L 12/14/24 09:16 Pulse 99 12/14/24 10:46 BP 118/59 L 12/14/24 10:46 Pulse Ox 100 12/14/24 10:30 O2 Del Method Room Air 12/14/24 07:22 Allergies Allergy/AdvReac Type Severity Reaction Status Date / Time No Known Allergies Allergy Verified 12/14/24 07:32 Home Medications ?Medication ?Instructions ?Recorded ?Confirmed ?Type vits no.126-ferrous fum 1 tablet PO DAILY 12/29/22 12/12/24 History 28 mg iron-folic acid 800 mcg tablet (Classic ) Laboratory Tests 12/14/24 06:46 WBC 6.6 K/mm3 (4.5-10.0) RBC 4.79 M/mm3 (4.2-5.4) Hgb 9.5 L g/dL (12.0-15.0) Hct 33.0 L % (37.0-47.0) MCV 68.9 L fl (80-100) MCH 19.8 L pg (26-34) MCHC 28.8 L g/dl (32-36) RDW 18.7 H % (11.5-14.5) Plt Count 247 k/mm3 (150-375) MPV 10.7 H fl (7.4-10.4) Immature Gran % (Auto) 0.5 % (0-0.5) Neut % (Auto) 64.4 % (45.5-73.1) Lymph % (Auto) 26.3 % (18.3-44.2) [place] % (Auto) 7.4 % (2.6-8.5) Eos % (Auto) 1.1 % (0-4.4) Baso % (Auto) 0.3 % (0.2-1.2) Lymph # (Auto) 1.74 K/mm3 (0.9-3.2) [place] # (Auto) 0.5 K/mm3 (0.1-0.6) Eos # (Auto) 0.1 K/mm3 (0-0.3) Baso # (Auto) 0.0 K/mm3 (0.0-0.1) Abs Immat Gran (auto) 0.03 K/mm3 (0.00-0.031) Absolute Neuts (auto) 4.3 K/mm3 (1.3-6.7) Absolute Nucleated RBC 0.000 K/mm3 (0.0-0.012) Band Neutrophils % Not Reportable Nucleated RBC % 0.0 % (0.0-0.2) Platelet Estimate Adequate (Adequate) % Immature Plt Fraction 6.6 % (0.9-11.2) Hypochromasia 1+ Microcytosis 1+ (NORMAL) Schistocytes None seen Syphilis IgG/IgM Ab Non-reactive (Nonreactive) Hep Bs Antigen Negative (Negative) Blood Type O Positive Antibody Screen Negative Patient hx anesthesia problems: none Family hx anesthesia problems: none Results Review: All pre-operative results and documents have been reviewed as part of the pre-operative evaluation. [facility] Past Medical History Medical History No pertinent past medical history Surgical History Surgical History H/O wisdom tooth extraction Family History Family History Other Unknown family medical history Social History Social History Smoking status: Never smoker Alcohol intake: never Substance use: never Do You Feel Safe in your Home?: Yes Lack of Transportation: No Lack of Food: Never True Current Housing: I Have Housing Concerned About Future Housing: No Difficulty Paying Gas/Electric Bills: No Difficulty Paying for Meds: No Currently Unemployed: No Education: High School Diploma/GED Difficulty w/ Childcare or Family Care: No Gender identity (if verbalized by the patient): Female Spiritual care concerns: No Anes - Eval Final PreProcedure Day of Procedure 12/14/24 10:52 Patient weight: normal Heart: regular rate and rhythm Lungs: clear to auscultation Neurological: alert and oriented Last oral intake: >/= 8 hours ASA classification: II Emergent: no Anesthetic plan: proceed Anesthesia type and monitoring: regional epidural and standard monitoring Results Review: All pre-operative results and documents have been reviewed as part of the pre-operative evaluation. Informed Consent: The patient's anesthetic plan and its attendant risks and benefits were discussed with the patient/family/POA. Questions were solicited and answers provided to the satisfaction of the patient/family/POA.
[2024-12-14] MEDS: OXYTOCIN 30 UNITS/NS 500 ML 30 UNITS/500 ML BAG 125 UNITS IV CONT (11:16)
--- NOTE | 2024-12-14 14:07 | PC.NURSE ---
1325-Patient transferred to post room #285 via wheelchair. Support person present. Oriented to unit, room, information board, rooming in, admission packet and security measures. Patient verbalizes understanding.
--- NOTE | 2024-12-14 17:00 | PC.NURSE ---
Mother verbalizes she is able to independently latch with appropriate positioning and alignment. She denies any nipple discomfort and is responsively . Infant is currently meeting outcomes for weight, output, jaundice, blood sugar and feeding frequencies. Mother declines any additional assistance or education at this time. Mother is encouraged to call for assistance if her doesn?t latch, pain with latching, questions or concerns. Mother voiced understanding of information shared along with the mom/baby guide for an additional resource. Reported to the Primary RN.
[2024-12-14] MEDS: POLYSACCHARIDE IRON COMPLEX 150 MG CAPSULE PO (17:48)
[2024-12-14] MEDS: DOCUSATE SODIUM 100 MG CAPSULE PO (17:48)
[2024-12-15 04:51] LABS: Hemoglobin 8.3 g/dL (12.0-15.0)
[2024-12-15] MEDS: POLYSACCHARIDE IRON COMPLEX 150 MG CAPSULE PO (07:20)
[2024-12-15] MEDS: MULTIVIT/MIN/PREN/FOL AC/IRON TABLET 1 TAB PO (07:20)
[2024-12-15 08:23] VITALS: BP 97/61; PULSE 113; RESP 14; TEMP 37.1; O2SAT 97
--- NOTE | 2024-12-15 08:55 | PC.NURSE ---
Introductions were made, then consulted with patient to assess needs related to . Mother led the conversation with her?plans to feed?her infant and the?experience so far. Patient and her support person feel that due to mom being so 'small' (105 lbs) and baby being so 'big' that he needs supplemented with formula. He took 50 ml this morning. Mom states that her milk was in on day two with her 1st baby and that she was an 'overproducer'. She is concerned that she doesn't have 'enough milk yet'. Encouraged understanding of responsive feeding, feeding on demand (aiming for 8-12 times in 24 hours, about every 2-3 hours), milk production, and building/maintaining a milk supply. Patient asks if it is okay to give a pacifier; education provided. Reviewed that breast feedings in the first days are 2-10ml in volume and that large feedings, though they may be well tolerated by baby, are not necessary at this time. Patient is supported that it is her decision to use a pacifier/supplement or not. Resources used for education were feeding sheet, name written on the communication board, and the mom/baby guide. Parents voiced understanding of information (reinforcement needed) and will call if there is a request for assistance. Reported to the Primary RN.
--- NOTE | 2024-12-15 10:17 | P.PNOB_ITS ---
OB - PN: Subj Subjective Date/time seen: 12/15/24 10:17 Patient comments: no complaints and pain well controlled baby status: doing well OB - PN: Obj Data Labs 12/15/24 04:30 Labs: Laboratory Results - last 24 hr 12/15/24 04:30 Hgb 8.3 L Hct 29.0 L OB - PN A/P Plan day: 1 Plan: routine care, discharge home and other (call office for appt) Time Spent With Patient Time: Total time spent is greater than 50% in coordination of care (as documented) at patient's floor/unit and/or counseling patient: Exam 2 : Bimanual exam- vagina & uterus: other (Uterus firm, nt @U)
--- NOTE | 2024-12-15 12:00 | PC.NURSE ---
Pt is Rubella non-immune and refuses MMR vaccine today. Education given on benefit to herself and infant if she receives the vaccine as well as informational handout given and pt states she will consider getting immunization at her follow up appointment.
[2024-12-17 11:28] VITALS: BP 108/72; PULSE 96; RESP 18; TEMP 36.6; O2SAT 99
== END 2024-12-15 12:55 | disposition home or self-care (01) | DRG 560 ==
LOC: ANHLDR 12-17 10:10 → ANHOB2 12-17 10:10
PROVIDERS: Admitting Provider Obstetrics & Gynecology; PCP Pediatrics; Visit Provider Obstetrics & Gynecology Gynecology
DX: O62.3 Precipitate labor (principal); Z37.0 Single live birth; Z3A.39 39 weeks gestation of pregnancy; O69.81X0 Labor and delivery complicated by cord around neck, without compression, not applicable or unspecified
CPT/HCPCS: 36415; 85014; 85018; 85025; 85055; 86593; 86850; 86900; 86901; 87340; A9270; J2590; J2795; J7120